=== PATIENT | female | born 1990 | race Caucasian/White ===

== ENCOUNTER 2020-04-29 16:19 | Emergency (ER) | payer SELFPAY ==
[2020-04-29] MEDS ORDERED: ONDANSETRON ODT 8 MG TAB SL ONE (16:30)
[2020-04-29] MEDS ORDERED: MORPHINE SULFATE INJ 10 MG/ML VIAL IM ONE (16:30)
--- NOTE | 2020-04-29 16:32 | ED.PDOC ---
History of Present Illness - General Chief Complaint: Trauma Stated Complaint: R wrist pain, and swollen L eye Time Seen by Provider: 04/29/20 16:28 Source: patient, RN notes reviewed, Vital Signs reviewed Additional Information: 29yo F h/o anemia presents with right wrist pain after fall. Reports dog was in way and she tripped, landing out outstretched right hand. Denies other pain, LOC, syncope, other injury, use of anticoagulation, or other pain at this time. - History of Present Illness Allergies/Adverse Reactions: Allergies NO KNOWN ALLERGY Allergy (Verified 04/29/20 16:33) Home Medications: Ambulatory Orders Ferrous Fumarate-Iron Polysacc [Integra F 125-1 mg] 1 cap PO DAILY 03/01/15 Acetaminophen W/ Codeine [Tylenol W/ CODEINE #3] 1 - 2 tablet PO Q8HR PRN #20 04/29/20 Ondansetron Odt [Zofran ODT] 4 mg PO Q8HR PRN #20 tab 04/29/20 Review of Systems - Review of Systems Constitutional: States: no symptoms reported EENTM: States: no symptoms reported Respiratory: States: no symptoms reported Cardiology: States: no symptoms reported Musculoskeletal: States: joint pain - right wrist All other Systems: Reviewed and Negative Past Medical History (General) - Patient Medical History Hx Stroke: No Hx Congestive Heart Failure: No Hx Diabetes: No - Vaccination History Hx Influenza Vaccination: No - Social History Hx Tobacco Use: No - quit 2 months - Female History Patient : No Family Medical History - Family History Mother Living Status: Still Living Hx Family Hypertension: Yes Physical Exam - Physical Exam General Appearance: Alert, Anxious, Well Developed, Well Nourished Ears, Nose, Throat: hearing grossly normal Neck: non-tender, full range of motion, supple Respiratory: chest non-tender, lungs clear, normal breath sounds Cardiovascular/Chest: normal peripheral pulses, regular rate, rhythm, no edema Peripheral Pulses: radial,right: 2+, radial,left: 2+ Back Exam: other - no midline c/t/l spine pain with palpation Extremity: other - RUE: 2+ radial/ulnar pulses, intact light touch sensation, moves all fingers, reduced ROM right wrist secondary to pain/edema/deformity; LUE: 2+ radial/ulnar pulses, intact light touch sensation, FROM all joints 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 Concern for fx, but consider strain/sprain, dislocation as well. Plan for pain control in ED, labs/ imaging as appropriate, with goal of symptomatic improvement and relief. Patient and I wore masks for duration of encounter, and I maintained a distance of 6 feet except for those brief times need for physical exam. Institutional screening protocol for coronavirus performed in triage. Fracture noted on xray. After discussion of hematoma block and closed reduction, including risks/benefits/alternatives thereof, patient consented to procedures. Hematoma block placed, patient in finger traps using soft gauze, and closed reduction performed. Post-reduction films with improved alignment and resolution of pain. Dr. Sawyer consulted for ortho, reported post-reduction acceptable and she should call/follow-up with his clinic tomorrow morning. Discussed splint care with patient, discussed signs/symptoms of compartment syndrome (and subsequently when to loosen/remove splint), and discussed follow- up. She voiced understanding and agreement. ED warnings given, f/u PCP and ortho. Dennis Abdi MD #[id number] 04/29/20 19:16 04/29/20 19:18 Procedures - Splinting Right Wrist Hand-Made Type: orthoglass Splint: sugar-tong Pre-Proc Neuro Vasc Exam: normal Post-Proc Neuro Vasc Exam: normal - improved pain; intact sensation and 2sec cap refill after splint placement. Tolaterated well without immediate complication. Departure - Departure Clinical Impression: Radius/ulna fracture Time of Disposition: 19:21 Disposition: Discharge to Home or Self Care Condition: Good Departure Forms: ED Discharge - Pt. Copy, Patient Portal Self Enrollment Instructions: DI for Trauma, Colles' Fracture (DC), Radius Fracture (DC) Diet: resume usual diet Referrals: Dom Norton MD [Primary Care Provider] - 1-5 Days Zach Sawyer MD [Active Staff] - 1-2 Days Prescriptions: Acetaminophen W/ Codeine [Tylenol W/ CODEINE #3] 1 - 2 tablet PO Q8HR PRN #20 PRN Reason: Pain -- Severe Ondansetron Odt [Zofran ODT] 4 mg PO Q8HR PRN #20 tab PRN Reason: Nausea/Vomiting Home Medications: Ambulatory Orders Ferrous Fumarate-Iron Polysacc [Integra F 125-1 mg] 1 cap PO DAILY 03/01/15 Acetaminophen W/ Codeine [Tylenol W/ CODEINE #3] 1 - 2 tablet PO Q8HR PRN #20 04/29/20 Ondansetron Odt [Zofran ODT] 4 mg PO Q8HR PRN #20 tab 04/29/20 Additional Instructions: You were seen in the [facility] Emergency Department today. Please fill and take the medications as prescribed (if any) and if you were prescribed antibiotics, please complete the full course. You will need further evaluation on an out patient basis. You must follow up with the listed locations and within the time frames indicated in your discharge paperwork (including your PCP in 3-5 days). Failure to follow up with any studies or doctor visits within the timeframe mentioned could result in poor outcome. Your examination today in the ED did not reveal a new or old problem that required immediate surgery or admission to the hospital. However, you should return to the ED if you are not improving as instructed (especially within the first 6 to 24 hours). This may include things such as uncontrolled vomiting, shortness of breath, fever, bleeding, or severe pain in a body part. You should return for any new or worsening emergency symptoms such as chest pain, severe headache, confusion, or severe abdominal pain. Finally, return to the emergency department if you have any concerns not mentioned above that are concerning to you or if you are unable to follow up as instructed above. Thank you for coming to [facility]. It was our pleasure to serve you today and we thank you for your visit.
[2020-04-29] MEDS ORDERED: LIDOCAINE 1% 10 ML VIAL INJ ONE (16:46)
--- NOTE | 2020-04-29 17:10 | RAD ---
EXAM DESCRIPTION: Forearm,Right CLINICAL HISTORY: 29 years Female, pain s/p fall COMPARISON: None. FINDINGS: There is a comminuted fracture through the distal radial metaphysis. There is severe dorsal displacement of the distal fracture fragments. There is overriding of the fracture fragments. There are likely is a fracture of the distal ulna but not well visualized. IMPRESSION: 1. Displaced distal radial fracture. 2. Questionable distal ulnar fracture. Electronically signed by: Nael Brunner MD 04/29/2020 5:09 PM CDT
--- NOTE | 2020-04-29 17:11 | RAD ---
EXAM DESCRIPTION: Hand,Right 2 Views CLINICAL HISTORY: 29 years Female, pain s/p fall COMPARISON: None. FINDINGS: There is a comminuted fracture involving the distal radial metaphysis. The distal fracture fragments are displaced dorsally. There is overriding of the fracture fragments. There is a mildly displaced fracture through the base of the ulnar styloid process. There is adjacent soft tissue swelling. IMPRESSION: 1. Fractures of the distal radius and ulna. Electronically signed by: Nael Brunner MD 04/29/2020 5:10 PM CDT
--- NOTE | 2020-04-29 17:13 | RAD ---
EXAM DESCRIPTION: Wrist,Right 3 Views CLINICAL HISTORY: 29 years Female, pain s/p fall COMPARISON: None. FINDINGS: There is a comminuted and displaced fracture involving the distal radial metaphysis. The distal fracture fragment is displaced dorsally. There is overriding of the fracture fragments. There is a displaced fracture through the base of the ulnar styloid process. There is soft tissue swelling. IMPRESSION: 1. Displaced fractures involving the distal radius and ulna. Electronically signed by: Nael Brunner MD 04/29/2020 5:11 PM CDT
--- NOTE | 2020-04-29 18:25 | RAD ---
EXAM DESCRIPTION: Wrist,Right 2 Views CLINICAL HISTORY: post-reduction COMPARISON: Same day earlier time FINDINGS: Two post reduction x-ray views of the right wrist were submitted. Acute displaced fracture of the distal radius in improved anatomical position when compared with the prior exam. There is also a transverse fracture of the styloid process of the. Bone mineralization is within normal limits. There is no radiopaque foreign body material. IMPRESSION: Acute fractures of the distal radius and ulna. Electronically signed by: Claude Hallman MD 04/29/2020 6:23 PM CDT
[2020-04-29] MEDS ORDERED: HYDROcodone 5MG/APAP 325MG 1 EA TAB PO ONE (18:34)
[2020-04-29 19:56] VITALS: BP 160/124; TEMP 98.4; O2SAT 95
== END 2020-04-29 19:45 | disposition home or self-care (01) ==
LOC: ER 16:19
DX: S52.501A Unspecified fracture of the lower end of right radius, initial encounter for closed fracture (principal); S52.611A Displaced fracture of right ulna styloid process, initial encounter for closed fracture; Z87.891 Personal history of nicotine dependence; W01.0XXA Fall on same level from slipping, tripping and stumbling without subsequent striking against object, initial encounter; Y92.9 Unspecified place or not applicable
CPT/HCPCS: 73090; 73100; 73110; 73120; J2270

== ENCOUNTER 2020-05-13 16:37 | Emergency (ER) | payer OTHER ==
[2020-05-13] MEDS ORDERED: IBUPROFEN 200 MG TAB PO ONE (16:59)
[2020-05-13] MEDS ORDERED: amLODIPine BESYLATE 5 MG TAB PO ONE (17:25)
[2020-05-13] MEDS ORDERED: PENICILLIN BENZATHINE 1.2 MU 1.2 MU/2 ML SYG IM ONE (17:41)
--- NOTE | 2020-05-13 18:08 | RAD ---
EXAM DESCRIPTION: Chest,1 View CLINICAL HISTORY:29 years Female, fever Comparison: None FINDINGS: No focal lung consolidation. No pleural effusion. No pneumothorax. Cardiac and mediastinal silhouette is unremarkable. No acute osseous abnormality. Soft tissues are unremarkable. IMPRESSION: No acute findings. No focal lung consolidation. Electronically signed by: Dima Alcala MD 05/13/2020 6:07 PM CDT
--- NOTE | 2020-05-13 18:16 | ED.PDOC ---
History of Present Illness - General Chief Complaint: General Stated Complaint: Generalized feeling of unwell, fever Time Seen by Provider: 05/13/20 16:45 Source: patient Exam Limitations: no limitations - History of Present Illness Initial Comments: 29-year-old female presented emergency room secondary to a low-grade fever today along with some mild body aches and headache and a mild sore throat. No real cough. No shortness of breath. The patient recently had a right upper extremity trauma which is currently immobilized. no known exposure to villareal virus. Timing/Duration: 4-6 hours Severity: mild Improving Factors: nothing Worsening Factors: nothing Associated Symptoms: fever/chills, headaches, malaise Allergies/Adverse Reactions: Allergies NO KNOWN ALLERGY Allergy (Verified 05/13/20 16:54) Home Medications: Ambulatory Orders Ferrous Fumarate-Iron Polysacc [Integra F 125-1 mg] 1 cap PO DAILY 03/01/15 Acetaminophen W/ Codeine [Tylenol W/ CODEINE #3] 1 - 2 tablet PO Q8HR PRN #20 04/29/20 Ondansetron Odt [Zofran ODT] 4 mg PO Q8HR PRN #20 tab 04/29/20 Amlodipine Besylate 5 mg PO DAILY #15 tab 05/13/20 Review of Systems - Review of Systems Constitutional: States: fever, malaise EENTM: States: throat pain Respiratory: States: no symptoms reported Cardiology: States: no symptoms reported Gastrointestinal/Abdominal: States: no symptoms reported Genitourinary: States: no symptoms reported Musculoskeletal: States: no symptoms reported Skin: States: no symptoms reported Neurological: States: headache Endocrine: States: no symptoms reported All other Systems: No Change from Baseline Past Medical History (General) - Patient Medical History Hx Stroke: No Hx of COPD: No Hx Cardiac Disorders: No Hx Congestive Heart Failure: No Hx Hypertension: No Hx Diabetes: No Hx Cancer: No Surgical History: other - Vaccination History Hx Tetanus, Diphtheria Vaccination: No Hx Influenza Vaccination: No Hx Pneumococcal Vaccination: No - Social History Hx Tobacco Use: Yes Hx Alcohol Use: No Hx Substance Use: No Hx Substance Use Treatment: No Hx Depression: No - Female History Patient is a Female of Child Bearing Age (10 -59 yrs old): Yes Patient : No - Denies Family Medical History - Family History Mother Living Status: Still Living Hx Family Hypertension: Yes Physical Exam - Physical Exam General Appearance: Alert, Comfortable, No apparent distress Eye Exam: bilateral normal Ears, Nose, Throat: hearing grossly normal, pharyngeal erythema Neck: non-tender, supple Respiratory: lungs clear, normal breath sounds, no respiratory distress, no accessory muscle use Cardiovascular/Chest: normal peripheral pulses, regular rate, rhythm - b orderline tachy, no edema Peripheral Pulses: radial,left: 2+, dorsalis pedis,right: 2+, dorsalis pedis,left: 2+ Gastrointestinal/Abdominal: non tender, soft Rectal Exam: deferred Extremity: no pedal edema, no calf tenderness, normal capillary refill 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 covid send out cxr no acute pathology rapid strep positive 05/13/20 18:18 29 yo with strep throat and received a dose of bicillin la. flu neg and cxr normal. covid pending. motrin for fever and discomfort. isolate until covid results. er warnings given. keep follow up wihtortho. will write amlodipine 5mg po qd for uncontrolled htn. follow up with pcp in 2 weeks with blood pressures. 05/13/20 18:20 higinio [email or web address] [id number] Departure - Departure Clinical Impression: Strep pharyngitis, Uncontrolled hypertension Disposition: Discharge to Home or Self Care Condition: Fair Departure Forms: ED Discharge - Pt. Copy, Patient Portal Self Enrollment Diet: regular diet Activity: no pushing/pulling with affected limb Referrals: Dom Norton MD [Primary Care Provider] - 1-2 Weeks Prescriptions: Amlodipine Besylate 5 mg PO DAILY #15 tab Home Medications: Ambulatory Orders Ferrous Fumarate-Iron Polysacc [Integra F 125-1 mg] 1 cap PO DAILY 03/01/15 Acetaminophen W/ Codeine [Tylenol W/ CODEINE #3] 1 - 2 tablet PO Q8HR PRN #20 04/29/20 Ondansetron Odt [Zofran ODT] 4 mg PO Q8HR PRN #20 tab 04/29/20 Amlodipine Besylate 5 mg PO DAILY #15 tab 05/13/20 Additional Instructions: 29 yo with strep throat and received a dose of bicillin la. flu neg and cxr normal. covid pending. motrin for fever and discomfort. isolate until covid results. er warnings given. keep follow up martha. will write amlodipine 5mg po qd for uncontrolled htn. follow up with pcp in 2 weeks with blood pressures.
[2020-05-13 18:45] VITALS: BP 148/105; TEMP 99.2; O2SAT 95
== END 2020-05-13 18:37 | disposition home or self-care (01) ==
LOC: ER 16:37
DX: J02.0 Streptococcal pharyngitis (principal); I10 Essential (primary) hypertension; R50.9 Fever, unspecified; F17.200 Nicotine dependence, unspecified, uncomplicated; Z20.828 Contact with and (suspected) exposure to other viral communicable diseases
CPT/HCPCS: 71045; 87502; 87635; 87880; J0561